=== PATIENT | female | born 1970 | race American Indian/Alaskan Native ===

== ENCOUNTER 2017-07-02 17:47 | Emergency (ER) | payer SELFPAY ==
--- NOTE | ~2017-07-02 | ER ---
PATIENT'S NAME: [facility] AGE: 47 Y [address] ROOM: [place] [id number] LOCATION: [facility] ADMIT DATE: 07/02/2017 ER/Outpatient Report DISCHARGE DATE: 07/02/2017 FAMILY PHYSICIAN: Nate Marcos MD ATTENDING PHYSICIAN: Teodoro Banda Time of Evaluation: 1800 hours. HISTORY OF PRESENT ILLNESS: The patient is a 47-year-old female, who was using a paring knife when she accidentally lacerated the dorsal left index finger. ALLERGIES: INCLUDE KEFLEX, FLAGYL, IV CONTRAST. CURRENT MEDICATIONS: 1. Morphine. 2. Tramadol. 3. Flexeril. MEDICAL HISTORY: Includes chronic back pain, history of lupus, degenerative disk disease. SURGERIES: Include cholecystectomy, , appendectomy, ankle ORIF. SOCIAL HISTORY: Nonsmoker, alcohol rarely. IMMUNIZATION: Unknown when her last tetanus. REVIEW OF SYSTEMS: MUSCULOSKELETAL: Denies any loss of motion to her index finger. NEUROLOGIC: No numbness or tingling to the left index finger. OBJECTIVE: VITAL SIGNS: Vitals reviewed. EXTREMITIES: Exam of the left index finger showed a horizontal laceration dorsally on the proximal hand. She had normal flexion and extension of her finger. Sensation, neurovascular appeared intact. The laceration was approximately 2 cm. ASSESSMENT: A 2 cm laceration on the left index finger on the dorsal proximal hand. PATIENT'S NAME: [facility] AGE: 47 Y [address] ROOM: [place] [address] LOCATION: [facility] ADMIT DATE: 07/02/2017 ER/Outpatient Report DISCHARGE DATE: 07/02/2017 FAMILY PHYSICIAN: Nate Marcos MD ATTENDING PHYSICIAN: Teodoro Banda PLAN AND TREATMENT: The area was anesthetized with 1% Xylocaine. The tendon was explored. The wound was washed out with normal saline under pressure. The wound was then closed with 4-0 Ethilon interrupted sutures x4. Sterile dressing applied. She was given a tetanus update. The patient advised in wound care and to make an appointment to have sutures removed in about a week. FRANKIE CHAPMAN DO SWJ/modl /[id number] d: 07/02/17 2317 t: 07/09/17 1216, OUTPATIENT REPORT
== END 2017-07-02 18:33 | disposition disaster alternative care site (69) ==
LOC: GACC 17:47
PROC: 0HQGXZZ Repair Left Hand Skin, External Approach (ICD-10-PCS; principal; 2017-07-02)
DX: S61.211A Laceration without foreign body of left index finger without damage to nail, initial encounter (principal); Z88.1 Allergy status to other antibiotic agents; Z91.041 Radiographic dye allergy status; Z79.899 Other long term (current) drug therapy; Z90.49 Acquired absence of other specified parts of digestive tract; Z90.89 Acquired absence of other organs; Z23 Encounter for immunization; Z98.890 Other specified postprocedural states; W26.0XXA Contact with knife, initial encounter